=== PATIENT | female | born 1995 | race American Indian/Alaskan Native ===

== ENCOUNTER 2021-03-19 23:31 | Emergency (ER) | payer MEDICAID, OTHER ==
[~2021-03-19] VITALS: Ht 162.6 cm; Wt 64.0 kg
[~2021-03-19 23:31] MED LIST: LIDOcaine 1% W/epiNEPHrine 1:100,000 20ml vial ONE
[2021-03-20] MEDS ORDERED: bacitracin 15gm ointment TP ONE (00:35)
[2021-03-20 01:07] VITALS: BP 124/88
== END 2021-03-20 06:52 | disposition home or self-care (01) ==
LOC: ER 23:31
DX: S51.812A Laceration without foreign body of left forearm, initial encounter (principal); Z60.2 Problems related to living alone; X58.XXXA Exposure to other specified factors, initial encounter; Y93.89 Activity, other specified; Y92.89 Other specified places as the place of occurrence of the external cause; Y99.8 Other external cause status
CPT/HCPCS: 12001; 99282

== ENCOUNTER 2021-06-15 20:18 | Emergency (ER) | payer MEDICAID ==
[~2021-06-15] VITALS: Ht 162.6 cm; Wt 58.6 kg
[2021-06-15] MEDS ORDERED: normal saline 1000ML IV soln IV ONE (20:40)
[2021-06-15] MEDS ORDERED: CefTRIAXone 2gm/D5W 50ml BAG 50 ML IV ONE (20:40)
[2021-06-15] MEDS ORDERED: vancomycin/NS 1 GM ADD-VANTAGE 250 ML IV ONE (20:40)
[2021-06-15] MEDS ORDERED: iohexol 300mg/ml 100ml inj. ONE (21:04)
[2021-06-15] MEDS ORDERED: LORazepam 2 mg/ml vial IV ONE (21:05)
[2021-06-15 21:06] LABS: BASOPHILS # (AUTO) 0.1 X10'3 (0-0.2); BASOPHILS % (AUTO) 0.5 % (0-1); EOSINOPHILS % (AUTO) 0.1 % (0-6); HEMATOCRIT 33.5 % (35.0-45.0); LYMPHOCYTES % (AUTO) 5.9 % (21-51); MEAN CORPUSCULAR HEMOGLOBIN 28.4 PG (27.0-31.0); MEAN CORPUSCULAR VOLUME 86.1 FL (78-98); MEAN PLATELET VOLUME 7.7 FL (7.4-10.4); MONOCYTES # (AUTO) 1.3 X10'3 (0-0.9); MONOCYTES % (AUTO) 8.2 % (2-12); NEUTROPHILS # (AUTO) 13.9 X10'3 (1.8-7.7); NEUTROPHILS % (AUTO) 85.3 % (42-75); PLATELET COUNT 390 X10'3 (140-440); RED BLOOD COUNT 3.89 X10'6 (4.20-5.60); RED CELL DISTRIBUTION WIDTH 15.7 % (11.5-14.5); WHITE BLOOD COUNT 16.2 X10'3 (4.5-11.0)
[2021-06-15 21:32] LABS: ALANINE AMINOTRANSFERASE 22 U/L (12-78); ALBUMIN 3.8 G/DL (3.4-5.0); ALBUMIN/GLOBULIN RATIO 0.8 (1.1-1.5); ALKALINE PHOSPHATASE 110 IU/L (46-116); ANION GAP 16 (8-16); ASPARTATE AMINO TRANSFERASE 14 U/L (10-37); BILIRUBIN,TOTAL 0.3 MG/DL (0.1-1.0); BLOOD UREA NITROGEN 6 MG/DL (7-18); CALCIUM 9.2 MG/DL (8.5-10.1); CHLORIDE 100 MMOL/L (99-107); GLUCOSE 107 MG/DL (70-104); POTASSIUM 3.4 MMOL/L (3.5-5.1); SODIUM 139 MMOL/L (135-145); TOTAL CARBON DIOXIDE 23.5 MMOL/L (24-32); TOTAL PROTEIN 8.6 G/DL (6.4-8.2); eGFR > 90 ML/MIN
[2021-06-15 21:36] LABS: HCG SERUM QL NEGATIVE
[2021-06-15] MEDS ORDERED: ketorolac trometh. 30mg/ml inj. IV ONE (22:20)
[2021-06-16] MEDS ORDERED: morphine 4 MG/ML inj SYRINge IV ONE ×3 (03:25→12:25)
[2021-06-16] MEDS ORDERED: ondansetron/PF 4mg/2ml inj IV ONE (03:25)
--- NOTE | 2021-06-16 06:30 | NUR ---
Assumed care of patient. Patient resting quietly; no apparent distress.
--- NOTE | 2021-06-16 06:40 | NUR ---
Patient requests pain medication for jaw pain; no orders on charge for PRN pain medication; ER provider notified.
[2021-06-16] MEDS ORDERED: morphine 4 MG/ML inj SYRINge IM ONE (06:55)
[2021-06-16] MEDS ORDERED: piperacillin/tazo 3.375gm/50ml 50 ML IV STA (13:58)
[2021-06-16 15:00] VITALS: BP 114/70
--- NOTE | 2021-06-16 19:08 | NUR ---
MEAL TRAY GIVEN TO PATIENT
== END 2021-06-16 23:30 | disposition left against medical advice (07) ==
LOC: ER 20:19
DX: S02.609A Fracture of mandible, unspecified, initial encounter for closed fracture (principal); Z20.822 Contact with and (suspected) exposure to COVID-19; L02.01 Cutaneous abscess of face; R51.9 Headache, unspecified; K02.9 Dental caries, unspecified; K12.2 Cellulitis and abscess of mouth; X58.XXXA Exposure to other specified factors, initial encounter; Y93.89 Activity, other specified; Y92.89 Other specified places as the place of occurrence of the external cause; Y99.8 Other external cause status
CPT/HCPCS: 36415; 70491; 71045; 80053; 83605; 84145; 84703; 85025; 87040; 87635; 93005; 96365; 96366; 96367; 96368; 96375; 96376; 99285; C9803; J0696; J1885; J2060; J2270; J2405; J2543; J3370; J7030; Q9967

== ENCOUNTER 2023-04-23 22:36 | Emergency (ER) | payer MEDICAID ==
[~2023-04-23] VITALS: Ht 162.6 cm; Wt 54.0 kg
[2023-04-23 23:09] LABS: URINE HCG NEGATIVE (NEG)
[2023-04-23 23:27] LABS: BILIRUBIN,URINE SMALL (Neg); CLARITY,URINE CLOUDY (Clear); COLOR,URINE YELLOW (Yellow); GLUCOSE, URINE NEGATIVE (Neg); KETONES,URINE >=80 mg/dl (Neg); LEUKOCYTE ESTERASE ,URINE SMALL (Neg); NITRITES, URINE NEGATIVE (Neg); OCCULT BLOOD,URINE NEGATIVE (Neg); PROTEIN,URINE 30 mg/dl (Neg); UROBILINOGEN,URINE 0.2 E.U/dL (0.2-1.0)
[2023-04-23 23:33] LABS: UA COLLECTION TYPE CLN CATCH MIDSTREAM
[2023-04-23 23:34] LABS: MUCUS STRANDS MANY /LPF (Neg); SQUAMOUS EPITHELIAL CELL,UR MANY /LPF (FEW)
[2023-04-23 23:36] LABS: BACTERIA,URINE 3+ /HPF (Neg); RBC,URINE NONE SEEN /HPF (0-2); WBC,URINE 50-100 /HPF (0-4)
[2023-04-23 23:53] LABS: BASOPHILS % (AUTO) 0.5 % (0-1); EOSINOPHILS % (AUTO) 0.3 % (0-6); HEMATOCRIT 39.9 % (35.0-45.0); HEMOGLOBIN 13.2 g/dl (12.0-16.0); LYMPHOCYTES # (AUTO) 1.1 X10'3 (1.1-4.8); MEAN CORPUSCULAR HEMOGLOBIN 28.6 PG (27.0-31.0); MEAN CORPUSCULAR HGB CONC 33.2 g/dL (33.0-36.5); MEAN CORPUSCULAR VOLUME 86.1 FL (78-98); MEAN PLATELET VOLUME 8.6 FL (7.4-10.4); MONOCYTES # (AUTO) 0.5 X10'3 (0-0.9); MONOCYTES % (AUTO) 5.6 % (2-12); NEUTROPHILS # (AUTO) 7.1 X10'3 (1.8-7.7); NEUTROPHILS % (AUTO) 80.6 % (42-75); PLATELET COUNT 314 X10'3 (140-440); RED BLOOD COUNT 4.64 X10'6 (4.20-5.60); RED CELL DISTRIBUTION WIDTH 14.4 % (11.5-14.5); WHITE BLOOD COUNT 8.9 X10'3 (4.5-11.0)
[2023-04-24 00:13] LABS: ALANINE AMINOTRANSFERASE 16 U/L (12-78); ALBUMIN/GLOBULIN RATIO 1.1 (1.1-1.5); ALKALINE PHOSPHATASE 96 IU/L (46-116); ANION GAP 13 (8-16); ASPARTATE AMINO TRANSFERASE 17 U/L (10-37); BILIRUBIN,TOTAL 0.2 MG/DL (0.1-1.0); BLOOD UREA NITROGEN 11 MG/DL (7-18); BUN/CREATININE RATIO 17.7 (10.0-20.0); CALCIUM 9.2 MG/DL (8.5-10.1); CHLORIDE 100 MMOL/L (99-107); CREATININE 0.62 MG/DL (0.40-0.90); GLUCOSE 124 MG/DL (70-104); LIPASE 29 U/L (16-77); POTASSIUM 3.6 MMOL/L (3.5-5.1); SODIUM 137 MMOL/L (135-145); TOTAL CARBON DIOXIDE 23.9 MMOL/L (24-32); TOTAL PROTEIN 7.7 G/DL (6.4-8.2); eCRCL 114 ML/MIN; eGFR > 90 ML/MIN
[2023-04-24] MEDS ORDERED: ringers solution, lacted 1,000 ML IV ONE (01:20)
[2023-04-24] MEDS ORDERED: iohexol 300mg/ml 100ml inj. ONE (01:30)
--- NOTE | 2023-04-24 01:53 | NUR ---
CT - 20G IV STARTED RT SIDE AC. LEFT IV INTACT AND RETURNED THE PATIENT TO THE RAP ROOM
[2023-04-24] MEDS ORDERED: CefTRIAXone/D5W-Rocephin 1gm 50 ML IV ONE (02:25)
[2023-04-24] MEDS ORDERED: CEPH-585 PO (05:06)
[2023-04-24 05:20] VITALS: BP 112/74; PULSE 95; RESP 17; TEMP 98; O2SAT 98
== END 2023-04-24 05:22 | disposition home or self-care (01) ==
LOC: ER 22:38
DX: N30.90 Cystitis, unspecified without hematuria (principal); Z79.899 Other long term (current) drug therapy
CPT/HCPCS: 36415; 74177; 80053; 81001; 81025; 83690; 85025; 96361; 96365; 99285; J0696; J3490; J7120; Q9967

== ENCOUNTER 2023-08-23 17:26 | Emergency (ER) | payer MEDICAID ==
[~2023-08-23] VITALS: Ht 162.6 cm; Wt 57.7 kg
[~2023-08-23 17:26] MED LIST changes: +CEPH-585 PO; -LIDOcaine 1% W/epiNEPHrine 1:100,000 20ml vial ONE
[2023-08-23 17:29] VITALS: BP 135/90; PULSE 87; RESP 16; TEMP 98.8; O2SAT 100
[2023-08-23 17:46] LABS: URINE HCG NEGATIVE (NEG)
[2023-08-23 17:47] LABS: BILIRUBIN,URINE NEGATIVE (Neg); CLARITY,URINE CLOUDY (Clear); COLOR,URINE YELLOW (Yellow); GLUCOSE, URINE NEGATIVE (Neg); KETONES,URINE NEGATIVE (Neg); LEUKOCYTE ESTERASE ,URINE SMALL (Neg); NITRITES, URINE NEGATIVE (Neg); OCCULT BLOOD,URINE MODERATE (Neg); PH,URINE 6.5 (4.8-8.0); PROTEIN,URINE 100 mg/dl (Neg); UROBILINOGEN,URINE 0.2 E.U/dL (0.2-1.0)
[2023-08-23] MEDS ORDERED: HYDROcodone/acetaminophen 5mg/325mg tablet PO ONE (17:55)
[2023-08-23] MEDS ORDERED: ketorolac trometh inj. 60 MG/2 ML VIAL IM ONE (17:55)
[2023-08-23] MEDS ORDERED: ondansetron/PF 4mg/2ml inj IM ONE (17:55)
[2023-08-23 18:00] LABS: UA COLLECTION TYPE CLN CATCH MIDSTREAM
[2023-08-23 18:01] LABS: WBC CLUMPS,URINE MANY /HPF (NEGATIVE); WBC,URINE TNTC /HPF (0-4)
[2023-08-23 18:02] LABS: BACTERIA,URINE 1+ /HPF (Neg); SQUAMOUS EPITHELIAL CELL,UR FEW /LPF (FEW)
== END 2023-08-23 18:16 | disposition left against medical advice (07) ==
LOC: ER 17:26
DX: R30.0 Dysuria (principal); R10.30 Lower abdominal pain, unspecified
CPT/HCPCS: 81001; 81025; 87077; 87088; 87186; 99283

== ENCOUNTER 2024-05-17 16:57 | Emergency (ER) | payer MEDICAID ==
[~2024-05-17] VITALS: Ht 162.6 cm; Wt 62.4 kg
[2024-05-17 17:04] VITALS: TEMP 98.6
[2024-05-17] MEDS: LIDOcaine 1% W/epiNEPHrine 1:100,000 20ml vial SQ STA (20:57)
[2024-05-17 22:54] VITALS: BP 133/88; PULSE 88; RESP 16; O2SAT 98
== END 2024-05-17 22:56 | disposition home or self-care (01) ==
LOC: ER 16:57
DX: S02.2XXA Fracture of nasal bones, initial encounter for closed fracture (principal); S00.11XA Contusion of right eyelid and periocular area, initial encounter; Y04.8XXA Assault by other bodily force, initial encounter; Y93.89 Activity, other specified; Y92.89 Other specified places as the place of occurrence of the external cause; Y99.8 Other external cause status
CPT/HCPCS: 70486; 99284; A6449

== ENCOUNTER 2024-05-30 19:20 | Emergency (ER) | payer MEDICAID ==
[~2024-05-30] VITALS: Ht 162.6 cm; Wt 59.9 kg
[2024-05-30 21:50] VITALS: BP 114/80; PULSE 74; RESP 16; TEMP 98.1; O2SAT 97
== END 2024-05-30 21:50 | disposition home or self-care (01) ==
LOC: ER 19:21
DX: R42 Dizziness and giddiness (principal)
CPT/HCPCS: 93005; 99283

== ENCOUNTER 2024-12-05 20:57 | Emergency (ER) | payer MEDICAID ==
[~2024-12-05] VITALS: Ht 162.6 cm; Wt 58.0 kg
--- NOTE | 2024-12-05 21:17 | Physician Documentation ---
History of Present Illness ~ Chief Complaint: Allergic Reaction Stated Complaint: ALLERGIC REACTION Time Seen by MD: 21:47 OK to notify your PCP?: Yes Primary Medical Doctor: NONE Source: patient Mode of Arrival: POV Exam Limitations: no limitations HPI 29-year-old female presents for possible allergic reaction after having a turkey sandwich with tomatoes on it 2 hours ago. She states that she normally does not put any veggies on her sandwich so this is a new thing but she has had tomatoes in the past no issue. She reports feeling some short of breath and has a history of asthma so used her inhaler with relief. She denies any airway occlusion or itchiness. She has not taken any Benadryl prior to arrival. She has had some nausea and 3 episodes of vomiting since eating the sandwich. Medication Reconciliation Allergies: Coded Allergies: No Known Allergies (Unverified , 12/05/24) Past Medical History Past Medical History: No Pertinent History Past Surgical History: noncontributory Drug Use: none Lives with: Alone Lives In: Home Review of Systems All Other Systems at this time: Reviewed and Negative Physical Exam Vital Signs: RN Vital Signs have been reviewed: Yes, Temperature: 97.6, Source: Temporal, Heart Rate: 94, Respiratory Rate: 18, BP: 139/96, Pulse Oximetry: 100, Weight: 58.000 Oxygen Flow Rate: 0 Pulse Oximetry Reflects: adequate oxygenation Physical Exam General: Alert, no distress. HEENT: No injection, moist mucous membranes. Airway clear. Neck: Full range of motion. Respiratory: No respiratory distress, equal chest rise and fall. Lungs clear to auscultation bilaterally Chest: No accessory muscle use. Cardiovascular: Regular rate and rhythm. Gastrointestinal: Nondistended. Nontender to palpation Extremities: Normal range of motion, no deformity. Neurologic: Oriented x4. Psychiatric: Normal mood and affect. Skin: Normal color, warm and dry. No rash or hives. Progress Results/Orders Results/Orders Completed Orders - ELLEN GONCALVES [employer] SPECIALIST Diphenhydramine Capsule (Benadryl Capsul (12/05/24 21:20) Medications Received in ER Medications (Trade) Dose Ordered Sig/Jacoby Route PRN Reason Start Time Stop Time Status Last Admin Dose Admin (Benadryl capsule) 50 mg ONCE ONCE PO 12/05/24 21:20 12/05/24 21:21 DC 12/05/24 21:24 50 MG Vital Signs 12/05/24 21:06 Temp 97.6 Pulse 94 Resp 18 B/P (MAP) 139/96 Pulse Ox 100 O2 Flow Rate 0 Medical Decision Making Findings 29-year-old female who believes she was having a allergic reaction after having a sandwich with tomatoes on it. Her vitals have remained stable throughout her visit, her SpO2 is 100% and heart rate under 100. She has had 2 meals in the past but usually does not eat vegetables but was trying to be healthy tonight. She did not taken any medications prior to arrival but was having some shortness of breath for which she did use her albuterol inhaler and have relief. She has a history of asthma. In the department I gave 50 mg of p.o. Benadryl and when rechecking the patient she reports feeling much better and feel that her breathing has eased. On exam she continues to not have any rash and her airway is patent. Using shared decision-making with the patient we feel she is safe to be discharged home. We discussed that she should avoid tomatoes in the future and seek allergy food testing from her primary care provider on an outpatient basis. Can follow up with her primary care provider within the week and return back here for any new or worsening symptoms. Differential Dx:Considerations: Include: Anaphylaxis, Angioedema, Contact dermatitis, Latex allergy, Urticaria Departure Disposition: 01 HOME / SELF CARE / HOMELESS Impression: Primary Impression: Acute allergic reaction Discharge Instructions: Food Allergy, [id number] Additional Instructions: We discussed that she should avoid tomatoes in the future and seek allergy food testing from her primary care provider on an outpatient basis. Can follow up with her primary care provider within the week and return back here for any new or worsening symptoms. Referrals: NO PRIMARY CARE PROVIDER (PCP) Education Educated: Patient Educated regarding: diagnosis, treatment, prognosis, need for follow up Additional Comment Medical Screen Exam This patient recieved a medical screening examination. After reviewing the individual's medical complaints with presenting symptoms and performing an appropriate physical examination, it was determined that no immediate life- threatening emergency medical condition is present. This individual is also not a women having contractions. Signature Scribe Signature: . Attestation: Scribed for Ellen Gnocalves Instructional Design Specialist by Ellen Lara NP . 12/05/24 22:23 Parts of this note were created using [employer] voice recognition software program. While efforts were made to correct any mistakes made by this voice recognition software program, nonsensical phrases may remain in this note. In addition, there may be errors and syntax, grammar, content and spelling. ELLEN GONCALVES [facility] Dec 05, 2024 21:17
[2024-12-05] MEDS: diphenhydrAMINE 25mg capsule PO ONE (21:24)
[2024-12-05 22:52] VITALS: BP 128/90; PULSE 67; RESP 16; TEMP 98.6; O2SAT 98
== END 2024-12-05 22:53 | disposition home or self-care (01) ==
LOC: ER 20:58
DX: T78.40XA Allergy, unspecified, initial encounter (principal); J45.909 Unspecified asthma, uncomplicated; X58.XXXA Exposure to other specified factors, initial encounter
CPT/HCPCS: 99282; Q0163

== ENCOUNTER 2025-04-16 14:35 | Emergency (ER) | payer MEDICAID ==
[~2025-04-16] VITALS: Ht 157.5 cm; Wt 54.5 kg
--- NOTE | 2025-04-16 15:00 | Physician Documentation ---
History of Present Illness ~ Chief Complaint: ETOH Stated Complaint: ETOH Time Seen by MD: 14:50 Primary Medical Doctor: NONE HPI 30-year-old female presents to the ED [place] [employer] [place] head strike. She is behaving as though she is intoxicated and smells strongly of alcohol. Currently very uncooperative. Has a small hematoma in the right brow Tetanus within 5 years?: Yes Medication Reconciliation Allergies: Coded Allergies: No Known Allergies (Unverified , 04/16/25) Past Medical History Past Medical History: No Pertinent History Past Surgical History: noncontributory Drug Use: none Lives with: Alone Lives In: Home Review of Systems All Other Systems at this time: Reviewed and Negative ROS As stated above in the HPI, otherwise all systems are reviewed and negative. Physical Exam Vital Signs: Temperature: 98.0, Source: Temporal, Heart Rate: 125, Respiratory Rate: 16, BP: 138/93, Pulse Oximetry: 99, Weight: 54.550 Oxygen Flow Rate: 0 Physical Exam General: Alert, no apparent distress. HEENT: PERRL, EOMI, no injection, moist mucous membranes. Hematoma right brow with developing ecchymosis Neck: Full range of motion. Respiratory: Lungs clear, no respiratory distress. Chest: No accessory muscle use. Cardiovascular: Regular rate and rhythm, no murmurs. Gastrointestinal: Soft, nontender, nondistended. Bowels sounds present. Extremities: Normal range of motion, no deformity. Neurologic: Oriented x4. Psychiatric: Normal mood and affect. Skin: Normal color, warm and dry. No edema, no ecchymosis. Progress Results/Orders Results/Orders Orders - VICTORINA GODWIN DIRECTOR SPEECH AND HEARING Ct Head (04/16/25 16:07) Behavioral Restraints (04/16/25 15:17) Gait Test (04/16/25 17:32) Completed Orders - VICTORINA GODWIN DIRECTOR SPEECH AND HEARING Normal Saline 1000ml (0.9% Sodium Chlori (04/16/25 15:00) Hcg, Ur Ql (04/16/25 14:57) Cbc/Diff (04/16/25 14:57) BMP (04/16/25 14:57) Lipase (04/16/25 14:57) CMP (04/16/25 14:57) Ct Head (04/16/25 16:07) Haloperidol Lact. (Haldol) (04/16/25 15:10) Ua W/Microscopic, Cult If Ind (04/16/25 15:25) Normal Saline 1000ml (0.9% Sodium Chlori (04/16/25 17:40) Medications Received in ER Medications (Trade) Dose Ordered Sig/Jacoby Route PRN Reason Start Time Stop Time Status Last Admin Dose Admin (0.9% sodium chloride (NS) 1000ml IV soln) 1,000 ml ONCE ONCE IVB 04/16/25 15:00 04/16/25 15:01 DC 04/16/25 15:26 1,000 ML (Haldol) 5 mg ONCE ONCE IM 04/16/25 15:10 04/16/25 15:11 DC 04/16/25 15:16 5 MG (0.9% sodium chloride (NS) 1000ml IV soln) 1,000 ml ONCE ONCE IVB 04/16/25 17:40 04/16/25 17:49 DC 04/16/25 17:53 1,000 ML Vital Signs 04/16/25 04/16/25 04/16/25 04/16/25 14:41 15:11 15:15 15:30 Temp 98.0 Pulse 125 136 136 91 Resp 16 20 16 21 B/P (MAP) 138/93 136/89 (105) 136/89 (105) 97/66 (76) Pulse Ox 99 98 98 98 O2 Flow Rate 0 0 0 0 04/16/25 04/16/25 04/16/25 04/16/25 15:31 15:45 15:51 16:21 Pulse 81 88 87 Resp 16 16 18 B/P (MAP) 108/77 (87) 108/77 (87) 93/59 (70) Pulse Ox 100 100 99 O2 Flow Rate 0 0 0 Laboratory Tests Test 04/16/25 15:25 04/16/25 15:54 Urine Specimen Description Cln catch midstream Urine Color Yellow Urine Clarity Slightly cloudy Urine pH 6.0 Urine Specific [place] <=1.005 Urine Protein Negative Urine Glucose (UA) Negative Urine Ketones Negative Urine Occult Blood Moderate H Urine Nitrite Negative Urine Bilirubin Negative Urine Urobilinogen 0.2 Urine Leukocyte Esterase Negative Urine RBC 0-2 Urine WBC 0-4 Urine Squamous Epithelial Cells Few Urine Bacteria Few Urine Culture Indicated Not ind Volume Urine Centrifuged 10 ml Urine HCG, Qualitative Negative Urine Comment White Blood Count 4.9 Red Blood Count 4.09 L Hemoglobin 11.5 L Hematocrit 35.1 Mean Corpuscular Volume 85.6 Mean Corpuscular Hemoglobin 28.2 Mean Corpuscular Hemoglobin Concent 32.9 L Red Cell Distribution Width 15.6 H Platelet Count 216 Mean Platelet Volume 8.9 Neutrophils (%) (Auto) 70.9 Lymphocytes (%) (Auto) 24.4 Monocytes (%) (Auto) 3.9 Eosinophils (%) (Auto) 0.3 Basophils (%) (Auto) 0.5 Neutrophils # (Auto) 3.5 Lymphocytes # (Auto) 1.2 Monocytes # (Auto) 0.2 Eosinophils # (Auto) 0.0 Basophils # (Auto) 0.0 CBC Comment Sodium Level 149 H Potassium Level 3.1 L Chloride Level 116 H Carbon Dioxide Level 24.2 Anion Gap 9 Blood Urea Nitrogen 5 L Creatinine 0.62 Estimated GFR/1.73 m2 > 90 BUN/Creatinine Ratio 8.1 L Glucose Level 94 Calcium Level 7.4 L Total Bilirubin 0.1 Aspartate Amino Transf (AST/SGOT) 19 Alanine Aminotransferase (ALT/SGPT) 13 Alkaline Phosphatase 56 Total Protein 6.4 Albumin 3.2 L Globulin 3.2 Albumin/Globulin Ratio 1.0 L Lipase 33 Chemistry Comments Medical Decision Making Additional information obtaine: family, N/A Findings Patient initially presented highly intoxicated. On her initial presentation I was concerned about any facial fractures or intracranial bleeds. CT did not indicate any signs of acute fracture. Her no signs of global entrapment . The patient has been sleeping in the ED undisturbed for an extended period of time. This time I am going to wait until the patient is safe for discharge Differential Dx:Considerations: Intoxication - ETOH, Intoxication - other drug, Sub. Abuse -continuous, Sub. Abuse-intermittent, Skull fracture, Fracture - other bone, Personality disorder, Closed head injury, Cervical spine injury, Abrasion, Confusion, Hematoma, Laceration, Foreign body, Dehydration, Encephalopathy, Hepatitis, Pancreatitis, Thiamine deficiency, Other Departure Disposition: 01 HOME / SELF CARE / HOMELESS Impression: Primary Impression: Alcoholic intoxication Condition: Improved Discharge Instructions: Alcohol Intoxication Referrals: NO PRIMARY CARE PROVIDER (PCP) Signature Scribe Signature: [email or web address] Attestation: Scribed for Victorina Godwin Jet Aircraft Servicer by Victorina Lara NP . 04/16/25 17:01 VICTORINA GODWIN NP Apr 16, 2025 15:00
[2025-04-16] MEDS: haloperidol lactate 5mg/ml inj IM ONE (15:13)
[2025-04-16] MEDS: normal saline 1000ML IV soln IVB ONE ×2 (15:26→17:53)
[2025-04-16 15:42] LABS: LEUKOCYTE ESTERASE ,URINE NEGATIVE (Neg); NITRITES, URINE NEGATIVE (Neg); OCCULT BLOOD,URINE MODERATE (Neg)
[2025-04-16 15:43] LABS: URINE HCG NEGATIVE (NEG)
[2025-04-16 15:48] LABS: SQUAMOUS EPITHELIAL CELL,UR FEW /LPF (FEW); UA COLLECTION TYPE CLN CATCH MIDSTREAM
[2025-04-16 16:14] LABS: MEAN PLATELET VOLUME 8.9 FL (7.4-10.4); RED CELL DISTRIBUTION WIDTH 15.6 % (11.5-14.5)
[2025-04-16 16:25] LABS: CREATININE 0.62 MG/DL (0.40-0.90); TOTAL CARBON DIOXIDE 24.2 MMOL/L (24-32); eCRCL 104 ML/MIN; eGFR > 90 ML/MIN
--- NOTE | 2025-04-16 16:44 | RADIOLOGY REPORT ---
CT CT HEAD Indication: head injury EXAM DATE: 04/16/2025 04:14 PM COMPARISON: 05/17/[address] TECHNIQUE: CT of the head without intravenous contrast. RADIATION DOSE: CTDIvol: 71.7 mGy, DLP: 1189 mGy*cm FINDINGS: There is no intracranial hemorrhage. There is no extra-axial fluid, mass, mass effect or midline shift. The ventricles are midline and normal in size. Basilar cisterns are patent. There are mild periventricular and subcortical white matter chronic microvascular ischemic changes. Mastoids well pneumatized.. Small right periorbital Anterior nasal bone fracture, may represent an old fracture. IMPRESSION: No intracranial hemorrhage or mass effect. Anterior nasal bone fracture, possibly old. Correlate with point tenderness. Right periorbital hematoma
[2025-04-16 22:47] VITALS: BP 111/70; PULSE 60; RESP 18; TEMP 98.6; O2SAT 99
== END 2025-04-16 22:48 | disposition home or self-care (01) ==
LOC: ER 14:36
DX: F10.129 Alcohol abuse with intoxication, unspecified (principal); R51.9 Headache, unspecified; Y90.9 Presence of alcohol in blood, level not specified
CPT/HCPCS: 36415; 70450; 80053; 81001; 81025; 83690; 85025; 96360; 96361; 96372; 99285; J1630; J7030